=== PATIENT | male | born 1985 | race African-American/Black ===

== ENCOUNTER 2024-05-25 08:01 | Emergency (ER) | payer SELFPAY ==
[~2024-05-25] VITALS: Ht 162.6 cm; Wt 75.0 kg
[~2024-05-25 08:01] MED LIST: AMOX500T2 MT; IBUP-2029 MT
[2024-05-25 08:03] VITALS: BP 144/96; PULSE 106; RESP 16; O2SAT 98
[2024-05-25] MEDS: ACETAMINOPHEN 325MG TABLET PO ONE (09:01)
== END 2024-05-25 11:09 | disposition home or self-care (01) ==
LOC: ER 08:09
DX: R04.0 Epistaxis (principal); I10 Essential (primary) hypertension
CPT/HCPCS: 99283